=== PATIENT | female | born 1945 | race Caucasian/White ===

== ENCOUNTER 2023-12-20 18:17 | Emergency (ER) | payer MEDICARE, OTHER, SELFPAY ==
[2023-12-20 18:19] VITALS: BP 162/63
[2023-12-20 18:36] LABS: % Basophils 0.6 % (0-2); % Immature Granulocytes 0.8 % (0-0.5); % Lymphocytes 12.6 % (20.5-51.1); % Monocytes 6.6 % (1.7-9.3); % Neutrophils 73.4 % (42.2-75.2); Absolute Basophils 0.1 10^3/uL (0-0.2); Absolute Eosinophils 0.6 10^3/uL (0-0.7); Absolute Immature Granulocytes 0.1 10^3/uL (0-0.05); Absolute Lymphocytes 1.2 10^3/uL (1.2-3.4); Absolute Monocytes 0.6 10^3/uL (0.1-0.6); Hematocrit 34.4 % (37.0-47.0); Hemoglobin 11.5 g/dL (12.0-16.0); Mean Corp Hgb Conc. 33.4 g/dL (33.0-37.0); Mean Corpuscular Hgb 28.8 pg (27.0-31.0); Mean Platelet Volume 9.1 fL (7.4-10.4); Nucleated Red Blood Cells % 0 %; Platelet Count 428 10^3/uL (130-400); Red Cell Dist. Width 14.6 % (11.5-14.5); White Blood Cell Count 9.5 10^3/uL (4.8-10.8)
[2023-12-20 19:24] LABS: ALT (SGPT) 15 U/L (0-35); AST (SGOT) 25 U/L (14-36); Albumin 3.8 g/dl (3.5-5.0); Alkaline Phosphatase 81 U/L (38-126); Blood Urea Nitrogen 30 mg/dl (7-17); Calcium 9.3 mg/dl (8.4-10.2); Carbon Dioxide 26 mmol/L (22-30); Chloride 103 mmol/L (98-107); Glucose 140 mg/dl (70-99); Potassium 3.9 mmol/L (3.5-5.1); Sodium 135 mmol/L (135-145); Total Bilirubin 1.2 mg/dl (0.2-1.3); Total Protein 6.2 g/dl (6.3-8.2); eGFR > 60.00
[2023-12-20 19:51] LABS: Erythrocyte Sed Rate 19 mm/hour (0-20)
--- NOTE | 2023-12-20 21:12 | ED.GENMED ---
History of Present Illness
General
Chief Complaint: Post Operative Problem(s)
Time Seen by Provider: 12/20/23 19:16
Travel History
Have you had any contact with someone who has COVID-19?: No
Do you have any symptoms of coronavirus? Fever > 100 degrees, chills, cough, shortness of breath, sore throat, loss of taste or smell, muscle aches, or headache?: No
History of Present Illness
History of Present Illness:
78-year-old female presents to the emergency department for evaluation of redness and itching to the right knee. She is 10 days status post right total knee replacement revision surgery performed at this hospital by Dr. Lutz. She has followed up
with orthopedics earlier this week at which time it was felt that the wound was healing well but she was noted to have mild erythematous rash around the wound site. She saw her loop tacker earlier in the week as the rash had spread to her back
and a biopsy was taken from the back however results were not yet available. She has been using topical triamcinolone ointment without much relief. She saw her loop tacker again today who advised she come to the emergency department out of
concern for potential infectious etiology. She denies any significant knee pain in fact her postoperative pain is gradually diminished where she is only taking 2 oxycodones daily. Denies any fevers or night sweats
Review of Systems
Review of Systems
Allergies reviewed?: Yes
All Other Systems: ROS reviewed and negative except as documented in HPI and ROS
Phy Exam
Physical Exam
Physical Exam:
GEN: Well appearing, NAD, WDWN
HEENT: Oral mucosa moist, no scleral icterus
Cardiac: Regular rate
Lung: No respiratory distress, no tachypnea
MSK: Well-approximated right total knee incision with no obvious dehiscence, there is an overlying dressing that is not removed. Erythematous/maculopapular skin lesions extending circumferentially from the incision and also noted to the upper
buttocks bilaterally as well as the low back
Skin: Good color, no pallor or jaundice, no rashes
Neuro: AO x3, moves all extremities freely
Psych: Calm, cooperative
Course
Orders/Labs/Results
Orders:
Orders
12/20/23 18:26
C-Reactive Protein Urgent
Comment: ADD ON
Complete Blood Count/With Diff Urgent
Comprehensive Metabolic Panel Urgent
Erythrocyte Sed Rate Urgent
Comment: ADD ON
Blood Culture Q30M
JUDY Source: Blood/Venous
Specimen Description:
Comment: FROM 2 SEPARATE SITES
12/20/23 18:30
Blood Culture Q30M
JUDY Source: Blood/Venous
Specimen Description:
Comment: FROM 2 SEPARATE SITES
12/20/23 19:37
Add On- LAB Urgent
Tests Added?: ESR, CRP
12/20/23 22:10
Cetirizine HCl [Zyrtec] 20 mg PO NOW STA
Abnormal Lab Results
12/20/23
18:26
RBC 4.00 L 10^6/uL
(4.20-5.40)
Hgb 11.5 L g/dL
(12.0-16.0)
Hct 34.4 L %
(37.0-47.0)
RDW 14.6 H %
(11.5-14.5)
Plt Count 428 H 10^3/uL
(130-400)
Abs Immat Gran (auto) 0.1 H 10^3/uL
(0-0.05)
Absolute Neuts (auto) 7.0 H 10^3/uL
(1.4-6.5)
Immature Gran % 0.8 H %
(0-0.5)
Lymphocytes % 12.6 L %
(20.5-51.1)
BUN 30 H mg/dl
(7-17)
Glucose 140 H mg/dl
(70-99)
Total Protein 6.2 L g/dl
(6.3-8.2)
12/20/23 18:26
12/20/23 18:26
Vital Signs
Initial and Last Documented VS:
Initial Vital Signs
Temp Pulse Resp BP Pulse Ox
98.2 F 88 16 162/63 98
12/20/23 18:19 12/20/23 18:19 12/20/23 18:19 12/20/23 18:19 12/20/23 18:19
Last Documented Vital Signs
Temp Pulse Resp BP Pulse Ox
98.2 F 88 16 162/63 98
12/20/23 18:19 12/20/23 18:19 12/20/23 18:19 12/20/23 18:19 12/20/23 18:19
MDM/Problems Addressed
MDM/Problems Addressed:
Given that the patient has minimal pain and primarily is concerned about itching coupled with her lack of fever, leukocytosis, or elevated inflammatory markers it is highly unlikely that this represents an infectious etiology. I reviewed clinical
images and lab results with orthopedics on-call who is in agreement that this is not likely infectious. Steroid prescription was provided to the patient however I advised her not to take this for at least the next 3 to 5 days as this will impair
her wound healing, we will start her on high-dose nonsedating antihistamines and recommend she follow-up closely with orthopedics next week
*Critical Care Note
Total Time (30-74mins, 75-104mins- exclusive of procedures): Not Applicable
ED Attending Note
-
Portions of this chart may have been created with voice recognition software.� Occasional wrong word or��sound alike� substitutions may have occurred due to the inherent limitations of voice recognition software.
Discharge Plan
Departure
Patient Disposition: Home (Routine Discharge)
Date of Disposition: 12/20/23
Time of Disposition: 21:25
Patient with high blood pressure during this ER visit?: No
Discharge Problem:
Allergic reaction
Prescriptions:
New
prednisone 20 mg tablet
40 mg PO DAILY 7 Days Qty: 14 0RF
No Action
aspirin 81 MG tablet,delayed release (DR/EC)
81 mg PO DAILY
levothyroxine 50 MCG tablet
50 mcg PO DAILY AT 0700
ezetimibe 10 MG tablet
10 mg PO DAILY
cholecalciferol (vitamin D3) 2,000 UNIT tablet
4,000 unit PO DAILY
apixaban [Eliquis] 5 MG tablet
5 mg PO BID
nadolol 40 MG tablet
40 mg PO DAILY
Referrals:
Nae Myles NP [Family Provider] -
Activity Restrictions/Additional Instructions:
There is no sign of an infection at this time. Please take ebck-yth-qrzcchy cetirizine (Zyrtec) or Ame (fexofenadine) 1 tablet every 8 hours until you see your orthopedic surgeon next week. If the symptoms are worsening as far as itching and
rash, please start the corticosteroids that I have sent to your pharmacy
If you develop fever, severe knee pain, or worsening redness and swelling please consider return to the emergency department
Interventions
Interventions:
*Risk Screen - Suicide Last Done: 12/20/23 18:19
*General Assessment Last Done: 12/20/23 18:19
*Neglect/Abuse Screening Last Done: 12/20/23 18:19
ED- Fall Risk Assessment Last Done: 12/20/23 19:22
*ED COVID-19 Vaccine History Last Done: 12/20/23 19:22
*Nursing Disposition Last Done: 12/20/23 22:25
ED-Skin Assessment Last Done: 12/20/23 19:22
Discharge Date and Time
Discharge Date/Time: 12/20/23 22:43
Print Language: HAITIAN
[2023-12-20] MEDS: ZYRTEC 20 MG PO (22:20)
== END 2023-12-20 22:43 | disposition home or self-care (01) ==
LOC: EMR 18:17
PROVIDERS: Emergency Medicine; EMERGENCY PHYSICIAN Emergency Medicine; FAMILY PHYSICIAN Nurse Practitioner Family
DX: T78.40XA Allergy, unspecified, initial encounter (principal); X58.XXXA Exposure to other specified factors, initial encounter
CPT/HCPCS: 99283; 96374; 80053; 85025; 85652; 86140; 87040

== ENCOUNTER → 2025-02-04 10:30 | Outpatient (REF) | payer MEDICARE, OTHER, SELFPAY | LOC: EMG 10:30 | PROVIDERS: ATTENDING PHYSICIAN Psychiatry & Neurology Neurology; FAMILY PHYSICIAN Nurse Practitioner Family | DX: M54.16 Radiculopathy, lumbar region (principal); R20.0 Anesthesia of skin | CPT/HCPCS: 72100; 95886; 95909 ==